=== PATIENT | male | born 1955 | race Asian ===

== ENCOUNTER 2024-04-28 14:02 | Emergency (ER) | payer MEDICARE, OTHER ==
[~2024-04-28] VITALS: Ht 167.6 cm; Wt 77.0 kg
[2024-04-28 14:54] VITALS: O2SAT 94
[2024-04-28 16:17] VITALS: PULSE 78; RESP 18
[2024-04-28] MEDS: IPRATROPIUM/ALBUTEROL 0.5-3(2.5)MG/3ML NEB HHN ONE (16:17)
[2024-04-28] MEDS: DEXAMETHASONE 10 MG/ML VIAL PO ONE (16:44)
[2024-04-28 17:06] LABS: BASOPHILS % 0.5 % (0.0-2.0); DIFFERENTIAL COMMENT 0; EOSINOPHILS % 0.7 % (0.0-5.0); HEMOGLOBIN. 14.9 g/dL (14.0-18.0); MEAN CORPUSCULAR HEMOGLOBIN 26.1 pg (28.0-32.0); MEAN CORPUSCULAR HGB CONC 33.1 g/dL (31.0-37.0); MEAN CORPUSCULAR VOLUME 78.8 fL (80.0-94.0); MEAN PLATELET VOLUME 7.2 fl (7.4-10.4); MONOCYTES % 12.5 % (2.0-8.0); NEUTROPHILS % 38.3 % (40.0-76.0); PLATELET 198 x1000/uL (130-400); RED BLOOD CELL COUNT 5.72 mill/uL (4.7-6.1); RED CELL DISTRIBUTION WIDTH 13.8 % (11.6-14.6); WHITE BLOOD COUNT 4.8 x1000/uL (4.5-11.0)
[2024-04-28 17:11] LABS: CHLORIDE 106 mEq/L (98-107); POTASSIUM 3.8 mEq/L (3.5-5.1); SODIUM 140 mEq/L (136-145)
[2024-04-28 17:12] LABS: CALCIUM 9.2 mg/dL (8.7-10.4); CARBON DIOXIDE 27 mEq/L (21-32)
[2024-04-28 17:17] LABS: GLUCOSE 111 mg/dL (70-105); UREA NITROGEN BLOOD 11 mg/dL (9-23)
[2024-04-28 17:19] LABS: TROPONIN I HIGH SENSITIVITY 7 ng/L (3.0-53)
[2024-04-28] MEDS ORDERED: GUAI-450 MT (17:27)
[2024-04-28] MEDS ORDERED: AZIT250T12 MT (17:27)
[2024-04-28] MEDS ORDERED: ALBU18HF2 IH (17:27)
[2024-04-28] MEDS ORDERED: P50 MT (17:27)
[2024-04-28 17:45] VITALS: BP 187/84; PULSE 64; RESP 18; TEMP 36.9; O2SAT 96
== END 2024-04-28 17:49 | disposition home or self-care (01) ==
LOC: ER 14:02
DX: J20.9 Acute bronchitis, unspecified (principal); Z79.52 Long term (current) use of systemic steroids; Z79.899 Other long term (current) drug therapy
CPT/HCPCS: 99285; 94070; 71045; 80048; 83880; 85025; 84484; 36415; 94640; 93005; J1100